=== PATIENT | female | born 1975 | race Hispanic/Latino ===

== ENCOUNTER 2019-12-25 21:04 | Inpatient (IN) | payer OTHER ==
[~2019-12-25] VITALS: Ht 162.6 cm; Wt 93.5 kg
[2019-12-25] MEDS ORDERED: ONDANSETRON HCL 4 MG/2 ML VIAL ONE (21:59)
[2019-12-25] MEDS ORDERED: KETOROLAC TROMETHAMINE 30MG/ML ONE (21:59)
[2019-12-25 22:30] LABS: POTASSIUM 3.5 mmol/L (3.5-5.1)
[2019-12-25 22:33] LABS: APPEARANCE,URINE Cloudy (CLEAR); BILIRUBIN,URINE Negative (NEGATIVE); COLOR,URINE Dark Yellow (YELLOW); GLUCOSE, URINE (UA) Negative (NEGATIVE); KETONES,URINE Trace mg/dL (NEGATIVE); LEUKOCYTE ESTERASE ,URINE Negative (NEGATIVE); NITRATE,URINE Negative (NEGATIVE); OCCULT BLOOD,URINE Large (NEGATIVE); PROTEIN,URINE POS 1+ mg/dL (NEGATIVE)
[2019-12-25 22:34] LABS: ALBUMIN 3.6 g/dL (3.5-5.0); BILIRUBIN,TOTAL 0.3 mg/dL (0.2-1.0); TOTAL PROTEIN, SERUM 7.2 g/dL (6.0-8.3)
[2019-12-25 22:36] LABS: HCG,QUAL RESULT NEGATIVE (NEGATIVE)
[2019-12-25 22:41] LABS: BASOPHILS % (AUTO) 0.6 % (0.0-5.0); HEMATOCRIT 36.5 % (36-48); LYMPHOCYTES % (AUTO) 28.5 % (21.0-51.0); MEAN CORPUSCULAR HEMOGLOBIN 27.4 pg (27.0-33.0); MEAN CORPUSCULAR HGB CONC 32.3 g/dL (32.0-36.0); MEAN CORPUSCULAR VOLUME 84.7 fL (79-99); MONOCYTES % (AUTO) 7.4 % (3.0-13.0); NEUTROPHILS % (AUTO) 60.3 % (40.0-77.0); PLATELET COUNT (AUTO) 212 K/uL (130-400); RED BLOOD CELL COUNT(AUTO) 4.31 MIL/uL (4.00-5.50); RED CELL DISTRIBUTION WIDTH 13.6 % (11.0-15.5); WHITE BLOOD COUNT (AUTO) 8.6 K/uL (4.8-10.8)
[2019-12-25 22:49] LABS: BACTERIA,URINE Few /HPF (None Seen); MUCUS,URINE Few LPF (None Seen); RBC,URINE >100 /HPF (0-1); SQUAMOUS EPITHELIAL CELL,UR 0-2 /HPF (0-2); WBC,URINE 0-1 /HPF (0-1)
[2019-12-25] MEDS ORDERED: CEFTRIAXONE SODIUM 1 GM ONE (23:15)
[2019-12-25] MEDS ORDERED: MORPHINE SULFATE 4 MG/1ML SYG ONE (23:16)
[2019-12-26] VITALS (7 sets, daily range): BP systolic 97–119; BP diastolic 52–76
--- NOTE | 2019-12-26 00:44 | NUR ---
ER Arrived from ER,aao x 3,states she feels nauseated after she got Morphine in ER. Admission care rendered.
[2019-12-26] MEDS ORDERED: ONDANSETRON HCL 4 MG/2 ML VIAL IVP PRN (02:45)
[2019-12-26] MEDS ORDERED: ACETAMINOPHEN 325 MG TAB PO PRN (02:45)
[2019-12-26] MEDS: CEFTRIAXONE SODIUM 1 GM IVP SCH (02:47)
--- NOTE | 2019-12-26 02:54 | NUR ---
SLEEP Pt sleeping,no distress noted.
[2019-12-26 05:39] LABS: HEMATOCRIT 35.1 % (36-48); MEAN CORPUSCULAR HEMOGLOBIN 27.3 pg (27.0-33.0); MEAN CORPUSCULAR HGB CONC 31.3 g/dL (32.0-36.0); MEAN CORPUSCULAR VOLUME 87.1 fL (79-99); PLATELET COUNT (AUTO) 174 K/uL (130-400); RED BLOOD CELL COUNT(AUTO) 4.03 MIL/uL (4.00-5.50); RED CELL DISTRIBUTION WIDTH 13.7 % (11.0-15.5); WHITE BLOOD COUNT (AUTO) 8.8 K/uL (4.8-10.8)
[2019-12-26 06:02] LABS: CREATININE 0.9 mg/dL (0.5-1.5); MAGNESIUM 1.8 mg/dL (1.80-2.40); POTASSIUM 4.4 mmol/L (3.5-5.1)
[2019-12-26 06:59] LABS: LYMPHOCYTES % (MANUAL) 9 % (22-44); MAN.DIFF COMMENT-IMPRESSION MANUAL DIFFERENTIAL; MONOCYTES % (MANUAL) 3 % (2-9); PLATELET MORPHOLOGY COMMENT ADEQUATE; SEGMENTED NEUTROPHILS % 88 % (40-70)
--- NOTE | 2019-12-26 08:00 | NUR ---
PT AAO X 3 REVIEW PLAN OF CARE. DENIES ANY ABD PAIN. OR FLANK PAIN. CALL LIGHT IN REACH.
[2019-12-26] MEDS: MORPHINE SULFATE 2 MG/ML 1ML SYG IVP PRN (09:05)
[2019-12-26] MEDS: SODIUM CHLORIDE 0.9% 1000ML 1,000 ML IV SCH ×2 (10:00→21:02)
--- NOTE | 2019-12-26 10:00 | NUR ---
STRAINING URINE.OUTPUT INFORMATION REVIEW WIT PT . SETUP IN THE BATHROOM, URINE
--- NOTE | 2019-12-26 11:30 | NUR ---
DR. STANFORD HERE AND SPOKE WITH PT .REGARDING CARE. ALSO STATED THAT HE CALLED DR. WISEMAN TO SEE HER OF THIS ADMISSION AND TO CALL TO HIS OFFICE FOR THE ADDED INFORMATION NEEDED . REVIEW PLAN OF CARE. WITH PT AND CALL LIGHT IN [facility]..
--- NOTE | 2019-12-26 13:00 | NUR ---
DR. WISEMAN OFFICE WAS CALLED AND DATA REGARDING .. PT INFORMATION . GIVEN .PER UNITS MECHANICAL SYSTEMS DESIGNER . ,,
--- NOTE | 2019-12-26 14:32 | NUR ---
NICHOLAS NOTE/IA UNABLE TO MEET WITH PATIENT FACE TO FACE, NEXT OF KIN CALLED, JAYA SINGLETARY. PER DAUGHTER, PATIENT LIVES WITH SPOUSE AND HER CHILDREN, INDEPENDENT WITH ADLS, NO DME IN USE, DRIVES, AND FEELS SAFE FOR MOTHER TO RETURN HOME DISCHARGED FROM HOSPITAL. Addendum: 12/27/19 at 1001 by MARQUISE CAIN RN CM Amended: Links added.
[2019-12-26] MEDS: TAMSULOSIN HCL 0.4 MG CAP.ER.24H PO SCH (21:02)
[2019-12-27] VITALS (21 sets, daily range): BP systolic 114–147; BP diastolic 58–87
[2019-12-27] MEDS: CEFTRIAXONE SODIUM 1 GM IVP SCH (03:02)
[2019-12-27] MEDS: SODIUM CHLORIDE 0.9% 1000ML 1,000 ML IV SCH ×2 (04:42→19:35)
--- NOTE | 2019-12-27 06:42 | NUR ---
CONSENT SIGNED AND PLACED IN THE CHART. NO FURTHER QUESTIONS FROM THE PT AT THIS TIME.
--- NOTE | 2019-12-27 11:50 | NUR ---
SURGERY called OR to check what time pt going for for procedure scheduled for 1200 noon ,switchboard operator Navin Ayala stated Dr Owens had a procedure to do in [place] and surgery would be around 1700 this afternoon ,pt voices understanding
--- NOTE | 2019-12-27 17:15 | NUR ---
TRANSFER pt to OR VIA BED
[2019-12-27] MEDS ORDERED: SUCCINYLCHOLINE CHLORIDE 20 MG/ML 10 ML VIAL ONE (17:35)
[2019-12-27] MEDS ORDERED: LIDOCAINE PF 2% 5ML ABBOJECT ONE (17:35)
[2019-12-27] MEDS ORDERED: DEXAMETHASONE SOD PHOSPHATE 10MG/ML 1ML VIAL ONE ×2 (17:35→17:43)
[2019-12-27] MEDS ORDERED: GLYCOPYRROLATE 1 MG/5 ML SYRINGE ONE (17:36)
[2019-12-27] MEDS ORDERED: MIDAZOLAM HCL 1 MG/ML 2ML VIAL ONE (17:36)
[2019-12-27] MEDS ORDERED: PROPOFOL 10 MG/ML 20ML VIAL IV ONE (17:36)
[2019-12-27] MEDS ORDERED: ONDANSETRON HCL 4 MG/2 ML VIAL ONE (17:36)
[2019-12-27] MEDS ORDERED: NEOSTIGMINE 5MG/5ML SYR IV ONE (17:36)
[2019-12-27] MEDS ORDERED: FENTANYL CITRATE PF 50 MCG/1 ML 2ML VIAL ONE (17:37)
[2019-12-27] MEDS ORDERED: ROCURONIUM 10MG/1ML SYR 10 MG/ML ML ONE (17:37)
[2019-12-27] MEDS ORDERED: IOHEXOL-350 50ML VIAL IV ONE (17:43)
[2019-12-27] MEDS ORDERED: LISI-613 PO (18:50)
[2019-12-27] MEDS ORDERED: ROSU10TA28 PO (18:50)
--- NOTE | 2019-12-27 20:30 | NUR ---
Post Op Assessment Received pt from PACU per bed, s/p left ureter stent, awake, with LR at 100cc/hr infusing well, routine post of assessment done, pt made aware currently with FC but will be removed in AM at 0600 as ordered, & per Dr. Owens she can be discharge. Pt confirmed awareness that she will need to see Dr. Owens in 5 to 7 days as he has plan to do breaking of the 6mm kidney stone. I made her aware we will need to continue straining her urine. Also aware that she is now on regular diet but we will first try clear liquids to avoid possible anesthetic reaction = N/V, pt agreed. Pt currently denies discomfort.
[2019-12-27] MEDS: TAMSULOSIN HCL 0.4 MG CAP.ER.24H PO SCH (21:08)
[2019-12-27] MEDS ORDERED: ACETAMINOPHEN 325 MG TAB PO PRN (22:30)
[2019-12-27] MEDS ORDERED: ACETAMINOPHEN 325 MG TAB ONE (23:16)
[2019-12-27] MEDS ORDERED: LACTATED RINGERS 1000ML 1,000 ML IV ONE (23:17)
[2019-12-27] MEDS: MORPHINE SULFATE 2 MG/ML 1ML SYG IVP PRN (23:27)
[2019-12-27] MEDS: LACTATED RINGERS 1000ML 1,000 ML IV SCH (23:29)
[2019-12-28 00:15] VITALS: BP 108/58
[2019-12-28] MEDS: CEFTRIAXONE SODIUM 1 GM IVP SCH (03:05)
[2019-12-28] MEDS: MORPHINE SULFATE 2 MG/ML 1ML SYG IVP PRN (03:06)
[2019-12-28 04:05] VITALS: BP 95/50
[2019-12-28 06:17] LABS: HEMATOCRIT 38.2 % (36-48); MEAN CORPUSCULAR HGB CONC 31.4 g/dL (32.0-36.0); MEAN CORPUSCULAR VOLUME 85.8 fL (79-99); RED BLOOD CELL COUNT(AUTO) 4.45 MIL/uL (4.00-5.50); RED CELL DISTRIBUTION WIDTH 13.3 % (11.0-15.5); WHITE BLOOD COUNT (AUTO) 6.5 K/uL (4.8-10.8)
[2019-12-28 06:26] LABS: CREATININE 0.9 mg/dL (0.5-1.5); MAGNESIUM 1.9 mg/dL (1.80-2.40); POTASSIUM 4.4 mmol/L (3.5-5.1)
[2019-12-28] MEDS: LACTATED RINGERS 1000ML 1,000 ML IV SCH (08:17)
[2019-12-28 12:00] VITALS: BP 117/61
--- NOTE | 2019-12-28 16:30 | NUR ---
D/C PT DISCHARGED A/A X 4, VS STABLE, NO COMPLICATION UPON D/C. PT GIVEN D/C INSTRUCTIONS TO F/U WITH DR. WISEMAN, IN 5-7 DAYS AND F/U WITH PRIMARY IN 3-5 DAYS. RX SCRIPT GIVEN TO PATIENT WITH ANTIBIOTIC AND PAIN MED. PT LEFT VIA WHEEL CHAIR IN PVT CAR WITH HER .
== END 2019-12-28 16:30 | disposition home or self-care (01) | DRG 661 ==
LOC: EDH 21:04 → EDHIP 23:00 → OBSVTOIN 23:00 → 3CH 12-26 01:45
PROVIDERS: ADMIT Internal Medicine Infectious Disease; ATTEND Internal Medicine Infectious Disease
PROC: 0T778DZ Dilation of Left Ureter with Intraluminal Device, Via Natural or Artificial Opening Endoscopic (ICD-10-PCS; principal; 2019-12-27 18:45)
PROC: BT1F1ZZ Fluoroscopy of Left Kidney, Ureter and Bladder using Low Osmolar Contrast (ICD-10-PCS; 2019-12-27 18:45)
DX: N13.2 Hydronephrosis with renal and ureteral calculous obstruction (principal); E66.9 Obesity, unspecified; Z68.35 Body mass index [BMI] 35.0-35.9, adult; I10 Essential (primary) hypertension; Z98.51 Tubal ligation status; D41.4 Neoplasm of uncertain behavior of bladder
CPT/HCPCS: 36415; 74176; 74420; 80048; 80053; 81001; 81025; 83690; 83735; 85025; 85027; A4344; C1758; C1769; C2617; G0378; J0330; J0696; J1100; J1885; J2001; J2250; J2270; J2405; J2704; J2710; J3010; J3490; J7120; Q9967